=== PATIENT | male | born 1955 | race Hispanic/Latino ===

== ENCOUNTER 2019-07-26 11:04 | Observation (INO) | payer BC ==
[2019-07-26 12:07] LABS: BASOPHILS % (AUTO) 0.3 % (0.0-5.0); EOSINOPHILS % (AUTO) 0.7 % (0.0-8.0); HEMATOCRIT 43.1 % (42-54); LYMPHOCYTES % (AUTO) 22.9 % (21.0-51.0); MEAN CORPUSCULAR HEMOGLOBIN 25.8 pg (27.0-33.0); MEAN CORPUSCULAR HGB CONC 32.3 g/dL (32.0-36.0); MONOCYTES % (AUTO) 7.9 % (3.0-13.0); NEUTROPHILS % (AUTO) 67.9 % (40.0-77.0); PLATELET COUNT (AUTO) 212 K/uL (130-400); RED BLOOD CELL COUNT(AUTO) 5.39 MIL/uL (4.50-6.20); RED CELL DISTRIBUTION WIDTH 14.1 % (11.0-15.5); WHITE BLOOD COUNT (AUTO) 6.1 K/uL (4.8-10.8)
[2019-07-26 12:38] LABS: POTASSIUM 3.6 mmol/L (3.5-5.1)
[2019-07-26 12:41] LABS: INR 1.09 (0.85-1.15); PARTIAL THROMBOPLASTIN TIME 29.4 SEC (26.3-35.5); PROTHROMBIN TIME 11.7 SEC (9.6-11.6)
[2019-07-26 12:53] LABS: ALBUMIN 3.5 g/dL (3.5-5.0); BILIRUBIN,TOTAL 0.6 mg/dL (0.2-1.0); CREATININE 1.4 mg/dL (0.5-1.5)
[2019-07-26 12:59] LABS: B-TYPE NATRIURETIC PEPTIDE 51 pg/mL (0-100)
[2019-07-26] MEDS ORDERED: HYDRALAZINE HCL 20 MG/ML VIAL IV PRN (17:30)
[2019-07-26] MEDS ORDERED: ACETAMINOPHEN 325 MG TAB PO PRN ×2 (17:30)
[2019-07-26] MEDS ORDERED: MORPHINE SULFATE 2 MG/ML 1ML SYG IV PRN (17:30)
[2019-07-26] MEDS ORDERED: ONDANSETRON HCL 4 MG/2 ML VIAL IV PRN (17:30)
[2019-07-26] MEDS ORDERED: METOPROLOL TARTRATE 25 MG TAB ONE (18:15)
[2019-07-26 18:30] LABS: CHOLESTEROL 179 mg/dL (<200); HDL CHOLESTEROL 99 mg/dL (29-71); LDL DIRECT 109 mg/dL (0-99); TRIGLYCERIDES 115 mg/dL (30-200)
[2019-07-26 18:32] LABS: HEMOGLOBIN A1C 6.5 % (4.0-6.0)
[2019-07-26] MEDS ORDERED: AMIODARONE HCL 200 MG TABLET PO ONE (18:37)
[2019-07-26] MEDS: AMIODARONE HCL 200 MG TABLET PO SCH (19:16)
[2019-07-26] MEDS: METOPROLOL TARTRATE 25 MG TAB PO SCH (20:38)
[2019-07-26] MEDS: INSULIN R PO SS1/2 SQ SCH (21:00)
[2019-07-26] MEDS ORDERED: ATORVASTATIN CALCIUM 20 MG TABLET PO SCH (21:00)
[2019-07-26] MEDS: RIVAROXABAN 20 MG TABLET PO SCH (21:14)
[2019-07-26] MEDS: FAMOTIDINE/PF 20 MG/2 ML VIAL IV SCH (21:14)
[2019-07-26] MEDS ORDERED: LISI-617 PO (21:53)
[2019-07-26] MEDS ORDERED: AMIO200T5 PO (21:54)
[2019-07-26] MEDS ORDERED: ATOR40TA69 PO (21:54)
[2019-07-26] MEDS ORDERED: GLIP1TAB5 PO (21:54)
[2019-07-26] MEDS ORDERED: HYDR12.54 PO (21:54)
[2019-07-26] MEDS ORDERED: METO25TA6 PO (21:54)
[2019-07-26] MEDS ORDERED: NITR0.4T50 SL (21:54)
[2019-07-26] MEDS ORDERED: LOSA50TA64 PO (21:54)
[2019-07-26] MEDS ORDERED: RIVA20TA PO (21:54)
[2019-07-27] VITALS: BP 147/76
[2019-07-27] MEDS ORDERED: NITROGLYCERIN 0.4 MG SL TAB SL PRN (01:00)
[2019-07-27 04:00] VITALS: BP 156/75
[2019-07-27 04:56] LABS: BASOPHILS % (AUTO) 0.3 % (0.0-5.0); EOSINOPHILS % (AUTO) 2.4 % (0.0-8.0); HEMATOCRIT 41.7 % (42-54); LYMPHOCYTES % (AUTO) 30.3 % (21.0-51.0); MEAN CORPUSCULAR HEMOGLOBIN 26.4 pg (27.0-33.0); MEAN CORPUSCULAR HGB CONC 32.4 g/dL (32.0-36.0); MEAN CORPUSCULAR VOLUME 81.6 fL (79-99); MONOCYTES % (AUTO) 10.3 % (3.0-13.0); NEUTROPHILS % (AUTO) 56.4 % (40.0-77.0); PLATELET COUNT (AUTO) 218 K/uL (130-400); RED BLOOD CELL COUNT(AUTO) 5.11 MIL/uL (4.50-6.20); RED CELL DISTRIBUTION WIDTH 14.1 % (11.0-15.5)
[2019-07-27] MEDS: INSULIN R PO SS1/2 SQ SCH ×3 (05:18→16:07)
[2019-07-27 05:20] LABS: ALBUMIN 3.4 g/dL (3.5-5.0); BILIRUBIN,TOTAL 0.8 mg/dL (0.2-1.0); CREATININE 1.4 mg/dL (0.5-1.5); POTASSIUM 3.2 mmol/L (3.5-5.1); TOTAL PROTEIN, SERUM 6.8 g/dL (6.0-8.3)
[2019-07-27] MEDS ORDERED: POTASSIUM CHLORIDE 10% ELIXIR 20 MEQ/15 ML UDCUP PO PRN (05:30)
[2019-07-27] MEDS ORDERED: LIDOCAINE HCL-MPF 1% 2ML VIAL IV PRN (05:30)
[2019-07-27] MEDS ORDERED: POTASSIUM CHLORIDE 10MEQ/100ML 100 ML IV PRN (05:30)
[2019-07-27] MEDS: POTASSIUM CHLORIDE 20 MEQ ERTAB PO PRN ×3 (06:04→12:30)
[2019-07-27 08:17] VITALS: BP 150/77
--- NOTE | 2019-07-27 08:40 | NUR ---
dr gayle paged regarding consult. pending cb
[2019-07-27] MEDS: FAMOTIDINE/PF 20 MG/2 ML VIAL IV SCH (08:50)
[2019-07-27] MEDS: AMIODARONE HCL 200 MG TABLET PO SCH (08:50)
[2019-07-27] MEDS: METOPROLOL TARTRATE 25 MG TAB PO SCH (08:50)
[2019-07-27] MEDS: RIVAROXABAN 20 MG TABLET PO SCH (08:50)
[2019-07-27] MEDS ORDERED: ENOXAPARIN SODIUM 30 MG/0.3 ML SQ SCH (09:00)
[2019-07-27] MEDS ORDERED: ASPIRIN 325 MG TABLET PO SCH (09:00)
[2019-07-27 10:02] LABS: T4 (THYROXINE) 10.6 ug/dL (4.7-13.3); THYROID STIMULATING HORMONE 3.91 uIU/mL (0.36-3.74)
[2019-07-27 12:00] VITALS: BP 155/74
[2019-07-27] MEDS ORDERED: LOSARTAN 100 MG TABLET PO SCH ×2 (12:15→12:30)
[2019-07-27] MEDS ORDERED: AMIODARONE HCL 200 MG TABLET PO SCH ×3 (12:15→21:00)
[2019-07-27] MEDS ORDERED: LOSARTAN 100 MG TABLET ONE (12:21)
--- NOTE | 2019-07-27 12:33 | NUR ---
INITIAL SW spoke to patient. Patient states he lives with spouse. Emergency contact is daughter, Emelina Love, [phone]. No home services. DME: [facility], glucometer (no insulin). Patient is able to complete ADL's independently and drives. PCP is Dr. Jey Singh. Pharmacy is [facility] located in [place]. DCP is home. Addendum: 07/27/19 at 1235 by BRITTNEY GASCA SS Amended: Links added.
[2019-07-27] MEDS ORDERED: LOSA100T58 PO (12:56)
[2019-07-27 16:50] VITALS: BP 149/75
[2019-07-27] MEDS ORDERED: METOPROLOL TARTRATE 25 MG TAB PO SCH (21:00)
== END 2019-07-27 16:50 | disposition home or self-care (01) ==
LOC: EDH 11:04 → EDHIP 17:27 → 3CH 20:41
PROVIDERS: ADMIT Hospitalist; ATTEND Hospitalist
DX: I20.0 Unstable angina (principal); I48.92 Unspecified atrial flutter; E11.9 Type 2 diabetes mellitus without complications; E78.5 Hyperlipidemia, unspecified; I10 Essential (primary) hypertension; I48.0 Paroxysmal atrial fibrillation; Z79.01 Long term (current) use of anticoagulants; Z79.899 Other long term (current) drug therapy; Z86.73 Personal history of transient ischemic attack (TIA), and cerebral infarction without residual deficits; Z85.038 Personal history of other malignant neoplasm of large intestine
CPT/HCPCS: 36415 ×2; 71045; 80053 ×2; 80061; 82550; 82948 ×4; 83036; 83880; 84436; 84443; 84484 ×4; 85025 ×2; 85610; 85730; 93005 ×6; 96372; 96374; 96375 ×2; 96376; 99285; G0378 ×8; J1815; J2405; J3490 ×2

== ENCOUNTER → 2022-08-26 | Outpatient (CLI) | payer OTHER, MEDICARE ==
[~2022-08-26] MED LIST: AMIO200T68 PO; ATOR40TA69 PO; GLIP1TAB5 PO; HYDR12.54 PO; LOSA100T59 PO; METO25TA6 PO; NITR0.4T50 SL; RIVA20TA PO
[2022-08-26 16:36] LABS: MAGNESIUM 1.6 mg/dL (1.80-2.40); POTASSIUM 3.5 mmol/L (3.5-5.1)
[2022-08-26 17:00] LABS: ALBUMIN 2.4 g/dL (3.5-5.0)
[2022-08-26 17:21] LABS: CREATININE 1.4 mg/dL (0.5-1.5); DIGOXIN 0.87 ng/mL (0.50-2.00); TOTAL PROTEIN, SERUM 6.2 g/dL (6.0-8.3)
== END | disposition home or self-care (01) ==
LOC: LAB 14:35
PROVIDERS: ATTEND Internal Medicine Cardiovascular Disease
DX: I48.0 Paroxysmal atrial fibrillation (principal); Z79.01 Long term (current) use of anticoagulants
CPT/HCPCS: 36415; 80053; 80162; 83735

== ENCOUNTER → 2022-12-16 | Outpatient (CLI) | payer OTHER, MEDICARE ==
[2022-12-16 12:27] LABS: ALBUMIN 3.2 g/dL (3.5-5.0); BILIRUBIN,TOTAL 0.3 mg/dL (0.2-1.0); CREATININE 1.1 mg/dL (0.5-1.5); DIGOXIN 0.6 ng/mL (0.50-2.00); MAGNESIUM 1.5 mg/dL (1.80-2.40); POTASSIUM 3.8 mmol/L (3.5-5.1); TOTAL PROTEIN, SERUM 5.8 g/dL (6.0-8.3)
== END | disposition home or self-care (01) ==
LOC: LAB 10:53
PROVIDERS: ATTEND Internal Medicine Cardiovascular Disease
DX: I48.0 Paroxysmal atrial fibrillation (principal); I50.42 Chronic combined systolic (congestive) and diastolic (congestive) heart failure
CPT/HCPCS: 36415; 80053; 80162; 83735; 83880

== ENCOUNTER → 2023-06-02 | Outpatient (CLI) | payer OTHER, MEDICARE ==
[2023-06-02 16:38] LABS: ALBUMIN 3.5 g/dL (3.5-5.0); BILIRUBIN,TOTAL 1.4 mg/dL (0.2-1.0); CREATININE 1.6 mg/dL (0.5-1.5); MAGNESIUM 1.4 mg/dL (1.80-2.40); POTASSIUM 4.1 mmol/L (3.5-5.1); TOTAL PROTEIN, SERUM 6.2 g/dL (6.0-8.3)
== END | disposition home or self-care (01) ==
LOC: LAB 06-02 14:20
PROVIDERS: ATTEND Internal Medicine Cardiovascular Disease
DX: I50.42 Chronic combined systolic (congestive) and diastolic (congestive) heart failure (principal); I48.0 Paroxysmal atrial fibrillation
CPT/HCPCS: 36415; 80053; 83735

== ENCOUNTER → 2023-06-09 | Outpatient (CLI) | payer OTHER, MEDICARE ==
[2023-06-09 12:30] LABS: CARBON DIOXIDE 30 mmol/L (21-32); CHLORIDE 101 mmol/L (101-111); GLOMERULAR FILTR. RATE CALC 36 mL/min (>90); GLUCOSE,RANDOM 152 mg/dL (70-105); POTASSIUM 3.6 mmol/L (3.5-5.1); SODIUM SERUM 143 mmol/L (136-145); UREA NITROGEN, BLOOD 53 mg/dL (7-18)
[2023-06-09 12:50] LABS: DIGOXIN < 0.20 ng/mL (0.50-2.00)
== END | disposition home or self-care (01) ==
LOC: LAB 10:37
PROVIDERS: ATTEND Internal Medicine Cardiovascular Disease
DX: I50.42 Chronic combined systolic (congestive) and diastolic (congestive) heart failure (principal); I48.0 Paroxysmal atrial fibrillation
CPT/HCPCS: 36415; 80048; 80162; 83735

== ENCOUNTER → 2024-03-28 | Outpatient (CLI) | payer OTHER, MEDICARE ==
[~2024-03-28] MED LIST changes: +ALLO300T2 PO; -AMIO200T68 PO; -ATOR40TA69 PO; +FURO40TA5 PO; -GLIP1TAB5 PO; -HYDR12.54 PO; -LOSA100T59 PO; +METF-446 PO; +METO-391 PO; +METO-408 PO; -METO25TA6 PO; -NITR0.4T50 SL; +PANT40TA54 PO; +POTA-364 PO; -RIVA20TA PO; +SERT-438 PO
[2024-03-28 16:19] LABS: BASOPHILS # (AUTO) 0.02 K/uL (0.00-0.20); BASOPHILS % (AUTO) 0.4 % (0.0-5.0); EOSINOPHILS % (AUTO) 2.2 % (0.0-8.0); IMMATURE GRANULOCYTE ABSOLUTE 0.07 K/uL (0-1); LYMPHOCYTES # (AUTO) 1.2 K/uL (1.0-4.8); LYMPHOCYTES % (AUTO) 25.9 % (21.0-51.0); MEAN CORPUSCULAR HEMOGLOBIN 29.4 pg (27.0-33.0); MEAN CORPUSCULAR HGB CONC 31.4 g/dL (32.0-36.0); MEAN CORPUSCULAR VOLUME 93.6 fL (79-99); MONOCYTES # (AUTO) 0.7 K/uL (0.1-1.0); NEUTROPHILS # (AUTO) 2.5 K/uL (1.8-7.7); NEUTROPHILS % (AUTO) 54.9 % (40.0-77.0); PLATELET COUNT (AUTO) 115 K/uL (130-400); RED BLOOD CELL COUNT(AUTO) 3.74 MIL/uL (4.50-6.20); RED CELL DISTRIBUTION WIDTH 15.5 % (11.0-15.5); WHITE BLOOD COUNT (AUTO) 4.5 K/uL (4.8-10.8)
[2024-03-28 16:44] LABS: ALBUMIN 3.4 g/dL (3.5-5.0); BILIRUBIN,TOTAL 0.8 mg/dL (0.2-1.0); CREATININE 1.2 mg/dL (0.5-1.3); POTASSIUM 3.3 mmol/L (3.5-5.1); TOTAL PROTEIN, SERUM 5.8 g/dL (6.0-8.3)
== END | disposition home or self-care (01) ==
LOC: LAB 11:33
PROVIDERS: ATTEND Internal Medicine Cardiovascular Disease
DX: I11.0 Hypertensive heart disease with heart failure (principal); I50.42 Chronic combined systolic (congestive) and diastolic (congestive) heart failure
CPT/HCPCS: 36415; 80053; 83880; 85025

== ENCOUNTER → 2024-04-13 | Outpatient (CLI) | payer OTHER, MEDICARE ==
[2024-04-13] MEDS: REGADENOSON 0.4 MG/5 ML PF SYG IVP ONE (15:10)
--- NOTE | 2024-04-14 12:05 | HMCSR ---
APPROVED REPORT Height: 5 ft 8in Weight: 211 lbs TEST INDICATIONS ANGINA PECTORIS UNSPECIFIED The imaging protocol used to acquire images was Rest Tc-99m/stress Tc-99m 1 day Consent: The procedure was explained and understood by the patient. Informerd consent was witnessed Geneiss Restrepo RN First, low dose rest was performed then high dose stress. RESTING DATA: The resting ekg shows: NSR A sensing V pacing Rest SPECT myocardial perfusion imaging was performed in supine position 72 minutes following the int ravenous injection of 11.7 mCi of Tc-99 Sestamibi. Time of rest injection: 08:40: Date: 04/13/2024 Time of rest imagin:52: Date: 04/13/2024 PHARMACOLOGIC STRESS: Pharmacologic stress test was performed by injecting regadenoson 0.4 mg IV push followed by the intra venous injection of 32 mCi of Tc-99 Sestamibi. Time of stress injection: 10:20: Date: 04/13/2024 Time of stress imagin:02: Date: 04/13/2024 Heart Rate at time of stress injection: 87 bpm. Gated Stress SPECT was performed 102 minutes after stress injection. The images were gated to evaluate regional wall motion and calculate left ventricular ejection fracti on. STRESS DETAILS Reason for Termination: Infusion complete Stress Symptoms: No chest pain or symptoms Max HR Achieved: 90 bpm % of APMHR Achieved: 60 Max Blood Pressure: 139/79 mmHg Stress ECG: NSR Conclusion Distal anterior ischemia Inferior infarct LV ejection fraction 44% Inferior hypokinesis No increased lung uptake Normal LV size at rest and stress
== END | disposition home or self-care (01) ==
LOC: SHCH 08:22
PROVIDERS: ATTEND Internal Medicine Cardiovascular Disease
DX: I25.9 Chronic ischemic heart disease, unspecified (principal); I21.9 Acute myocardial infarction, unspecified
CPT/HCPCS: 78452; 93017; J2785; A9500 ×2

== ENCOUNTER 2024-05-24 07:31 | Day surgery (SDC) | payer OTHER, MEDICARE ==
[2024-05-22 09:21] LABS: BASOPHILS # (AUTO) 0.02 K/uL (0.00-0.20); BASOPHILS % (AUTO) 0.5 % (0.0-5.0); EOSINOPHILS # (AUTO) 0.11 K/uL (0.00-0.70); EOSINOPHILS % (AUTO) 2.8 % (0.0-8.0); HEMATOCRIT 40.8 % (42-54); IMMATURE GRANULOCYTE ABSOLUTE 0.02 K/uL (0-1); LYMPHOCYTES # (AUTO) 1.4 K/uL (1.0-4.8); LYMPHOCYTES % (AUTO) 33.8 % (21.0-51.0); MEAN CORPUSCULAR HGB CONC 32.1 g/dL (32.0-36.0); MEAN CORPUSCULAR VOLUME 90.5 fL (79-99); MONOCYTES # (AUTO) 0.5 K/uL (0.1-1.0); MONOCYTES % (AUTO) 12.8 % (3.0-13.0); NEUTROPHILS % (AUTO) 49.6 % (40.0-77.0); PLATELET COUNT (AUTO) 133 K/uL (130-400); RED BLOOD CELL COUNT(AUTO) 4.51 MIL/uL (4.50-6.20); RED CELL DISTRIBUTION WIDTH 14.7 % (11.0-15.5)
[2024-05-22 09:30] LABS: CREATININE 1.2 mg/dL (0.5-1.3); POTASSIUM 4.5 mmol/L (3.5-5.1)
[2024-05-22 09:32] LABS: INR 1.02 (0.85-1.15); PROTHROMBIN TIME 11.4 SEC (9.6-11.6)
[2024-05-22 09:33] LABS: PARTIAL THROMBOPLASTIN TIME 29.1 SEC (26.3-35.5)
--- NOTE | 2024-05-22 09:38 | EKG ---
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
[2024-05-22 09:45] LABS: APPEARANCE,URINE CLEAR (CLEAR); BILIRUBIN,URINE NEGATIVE (NEGATIVE); COLOR,URINE LIGHT-YELLOW (YELLOW); GLUCOSE, URINE (UA) NEGATIVE (NEGATIVE); KETONES,URINE NEGATIVE (NEGATIVE); LEUKOCYTE ESTERASE ,URINE NEGATIVE Leu/uL (NEGATIVE); NITRATE,URINE NEGATIVE (NEGATIVE); OCCULT BLOOD,URINE NEGATIVE (NEGATIVE); PROTEIN,URINE 10 mg/dL (NEGATIVE); UROBILINOGEN,URINE 0.2 mg/dL (0.2-1.0)
[2024-05-22 09:47] LABS: ADD UA MICROSCOPIC YES
[2024-05-22 09:48] VITALS: BP 131/74; PULSE 86; RESP 13; TEMP 98.3
[2024-05-22 09:51] LABS: B-TYPE NATRIURETIC PEPTIDE 185 pg/mL (0-100)
--- NOTE | 2024-05-22 10:11 | HMCIMG ---
CHEST 1VW HISTORY: Preop COMPARISON: 07/06/2023 FINDINGS: A frontal projection of the chest was obtained. No acute pulmonary infiltrates is seen. The heart is borderline enlarged. Pacemaker is seen entering from the right. Degenerative changes are seen. Aortic calcifications are seen. IMPRESSION: 1. No acute pulmonary infiltrate is seen.
[2024-05-22 10:13] LABS: MUCUS,URINE RARE LPF (None Seen); WBC,URINE 0-1 /HPF (0-1)
[~2024-05-24] VITALS: Ht 175.3 cm; Wt 93.0 kg
[2024-05-24] VITALS (10 sets, daily range): BP systolic 135–174; BP diastolic 82–98; PULSE 82–88; RESP 13–18; TEMP 97.2–97.9
[~2024-05-24 07:31] MED LIST changes: +ASPI-1443 PO; +CLOP75TA32 PO; +ISOS60TA77 PO; -METF-446 PO; -METO-391 PO; +NITR0.4T50 SL; +ROSU10TA72 PO; +SACU1TAB PO
[2024-05-24] MEDS: 0.9%NACL 1000ML 1,000 ML IV SCH (08:07)
[2024-05-24] MEDS ORDERED: IOHEXOL-350 75 ML VIAL IV ONE ×2 (10:01→11:32)
[2024-05-24] MEDS ORDERED: HEParin 10,000 UNIT/10ML (1,000 UNIT/ML) VIAL ONE (10:01)
[2024-05-24] MEDS ORDERED: HEParin-NS 1,000 UNIT/500 ML 1,000 ML IV ONE (10:01)
[2024-05-24] MEDS ORDERED: IOHEXOL-350 50ML VIAL IV ONE (10:01)
[2024-05-24] MEDS ORDERED: LIDOCAINE HCL 400MG/20ML VIAL ONE (10:01)
[2024-05-24] MEDS ORDERED: NITROGLYCERIN 50MG VIAL ONE ×2 (10:02→10:12)
[2024-05-24] MEDS ORDERED: IOHEXOL 350 MG/ML 100ML INFUS..BTL IV ONE (10:26)
[2024-05-24] MEDS ORDERED: FENTanyl CITRate PF 50 MCG/1 ML 2ML VIAL ONE (10:29)
[2024-05-24] MEDS ORDERED: BIVALIRUDIN 250 MG/VIAL IV ONE ×2 (10:29→12:19)
[2024-05-24] MEDS ORDERED: MIDAZOLAM HCL 1 MG/ML 2ML VIAL ONE (10:29)
[2024-05-24] MEDS ORDERED: HEParin-NS 1,000 UNIT/500 ML 500 ML IV ONE (11:31)
[2024-05-24] MEDS ORDERED: ASPIRIN 325MG EC TAB PO ONE (11:37)
[2024-05-24] MEDS ORDERED: cloPIDOgrel 300MG TAB ONE (11:37)
--- NOTE | 2024-05-24 14:29 | PRN ---
DATE OF PROCEDURE: 05/24/2024 PROCEDURE PERFORMED: LEFT HEART CATHETERIZATION, LEFT VENTRICULOGRAM, LEFT AND RIGHT SELECTIVE CORONARY ANGIOGRAM, INJECTION OF LEFT INTERNAL MAMMARY TO ASSESS SUITABILITY FOR USE A POSSIBLE BYPASS CONDUIT (PATIENT CONSIDERED FOR BYPASS), PTCA AND STENTING OF THE DIAGONAL ONE WITH A 2.5 X 26 MM WENDY FRONTIER DRUG-ELUTING STENT, PTCA ALONE TO THE OM1 WITH A 2.0 X 11 MM NC STORMER BALLOON TO 18 ATMOSPHERES. GEOSPATIAL INFORMATION TECHNOLOGIST: Ryland Ball MD, [facility] INDICATION: Medically refractory angina, abnormal Lexiscan Cardiolite stress test with distal anterior ischemia, prior inferior infarct, and LVEF of 44%. PROCEDURE NOTE: After informed consent was obtained the patient was prepped and draped in the usual sterile fashion. A 6 [place] arterial sheath was inserted in the right femoral artery micropuncture technique with ultrasound guidance with a front wall, first pass puncture. This was performed after fluoroscopic identification of bony landmarks to facilitate a more accurate puncture of the right common femoral artery. The arterial sheath was aspirated and flushed. A 6 [place] pigtail catheter was then advanced over a J-tipped guidewire to the ascending aorta and was prolapsed into the left ventricle. The catheter was aspirated and flushed and pressure measurements were obtained. A left ventriculogram was then performed in a 30 VALLEJO projection. A pullback procedure was then performed, and this catheter was removed over a J-tipped guidewire. A 6F JL-4 was then advanced to the ascending aorta over a J-tipped guidewire, was aspirated and flushed, and was used for selective left coronary angiograms in multiple obliquities. A JR-4 was advanced in a similar fashion to the ascending aorta over a J-tipped guidewire and was used for selective right coronary angiograms in multiple obliquities with findings as outlined below. PERCUTANEOUS CORONARY INTERVENTION: A six [place] JL4 guiding catheter was used for the intervention and provided suboptimal support requiring insertion of a six [place] GuideLiner. This facilitated preparation of the diagonal one with a 2.5 x 20 NC Euphora balloon followed by stenting with a 2.5 x 26 mm Medtronic WENDY FRONTIER drug-eluting stent. Final results were excellent with a 0% residual. A ollie wire was required to access a 98% OM1 ostial stenosis with a 1.5 x 15 mm Sprinter OTW balloon, and a GuideLiner had difficulty advancing into the proximal circumflex. Subsequently a 2.0 x 11 mm NC Stormer balloon was deployed to 18 atmospheres for prolonged inflations of 2 minutes leading to a 50% ostial residual with mild capping dissection. A right common femoral angiogram was performed to assess suitability for Perclose suture closure and the Perclose device was deployed in standard fashion. Perclose suture closure was successful without bleeding or hematoma. The patient tolerated the procedure well and was returned to the holding area in stable condition. FINDINGS: LEFT HEART HEMODYNAMICS: LVEDP prior to LV-gram was 8 mm of mercury and 12 mm of mercury after LV-gram. There was no aortic valve gradient on pullback LEFT VENTRICULOGRAM: A left ventriculogram in a 30 degree VALLEJO projection demonstrated moderate anter oapical apical and inferoapical hypokinesis with an LVEF estimated at 45%. There was 1+ mitral regurgitation only. CORONARY ANGIOGRAM: LEFT MAIN: The left main had a 30% ostial stenosis without dampening or ventricularization of the pressure waveform. LEFT ANTERIOR DESCENDING: The LAD had a long chronic total occlusion after the 1st diagonal. The distal LAD filled via [id number]-[id number]-gzoi collaterals and appeared to reveal a small mid and distal LAD and diagonal two branch, but these were clearly under filled and are likely larger. The 1st diagonal had a diffuse proximal 90% stenosis in a large diagonal one. LEFT CIRCUMFLEX: The left circumflex had a 50% stenosis after the bifurcation of a small to moderate OM1. The OM1 had a 98% ostial stenosis. The circumflex terminated in the AV groove after an OM2 with a 30% stenosis supplying the posterolateral area. RAMUS INTERMEDIATE BRANCH: There was no ramus intermediate branch. RIGHT CORONARY ARTERY: The RCA had a 30% proximal stenosis and a 50% mid stenosis. The posterolateral segment between the PDA and the posterolateral branch had a 60% stenosis with a small aneurysm. The PDA had a 40% ostial stenosis in the posterolateral branch was normal. IMPRESSION: Severe three-vessel coronary artery disease: Long chronic total occlusion in the mid LAD with the distal LAD filling by [id number] collaterals. 90% large diagonal one stenosis. 50% mid left circumflex stenosis. 98% ostial OM1 stenosis which is a small vessel measuring approximately 2 mm. 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 Mild ischemic cardiomyopathy with anterior, anteroapical, and inferoapical mode rate hypokinesis and LVEF estimate of 45%. Mild mitral regurgitation. No aortic valve stenosis. RECOMMENDATION: Successful PTCA and stenting of the diagonal one with a 2.5 x 26 mm Medtronic Wendy Lares Successful balloon angioplasty alone to the OM1 reducing a 98% stenosis to a 50% stenosis with short capping dissection (likely to heal), with suboptimal acute angulation of the OM1 which would lead to plaque shift into the ongoing larger circumflex with any attempt at stenting. Continued medical management. Dual antiplatelet therapy for one year. COMPLICATIONS OF PROCEDURE: None, the patient tolerated the procedure well and returned to his room in stable condition. HEMOSTASIS: Perclose suture closure was successful without bleeding or hematoma. ESTIMATED BLOOD LOSS: Less than 10 mL. CONTRAST TOTAL: 300 mL. RYLAND BALL MD May 24, 2024 14:29
[2024-05-24] MEDS ORDERED: DEXTROSE 50%-WATER 50 ML DISP.SYRIN IV PRN (14:30)
[2024-05-24] MEDS ORDERED: 0.9%NACL 1000ML 1,000 ML IV SCH (14:30)
[2024-05-24] MEDS ORDERED: INSULIN humuLIN R 100 UNIT/ML 3ML SQ SCH (16:30)
== END 2024-05-24 19:10 | disposition home or self-care (01) ==
LOC: DAH 07:31
PROVIDERS: ATTEND Internal Medicine Cardiovascular Disease
DX: R94.39 Abnormal result of other cardiovascular function study (principal); I25.112 Atherosclerotic heart disease of native coronary artery with refractory angina pectoris; I25.82 Chronic total occlusion of coronary artery; I25.5 Ischemic cardiomyopathy; I11.0 Hypertensive heart disease with heart failure; I50.42 Chronic combined systolic (congestive) and diastolic (congestive) heart failure; R93.1 Abnormal findings on diagnostic imaging of heart and coronary circulation; I34.0 Nonrheumatic mitral (valve) insufficiency; E78.5 Hyperlipidemia, unspecified; Z98.0 Intestinal bypass and anastomosis status; Z90.49 Acquired absence of other specified parts of digestive tract; Z86.73 Personal history of transient ischemic attack (TIA), and cerebral infarction without residual deficits; Z85.038 Personal history of other malignant neoplasm of large intestine; Z95.810 Presence of automatic (implantable) cardiac defibrillator; Z79.84 Long term (current) use of oral hypoglycemic drugs; Z79.899 Other long term (current) drug therapy
CPT/HCPCS: 80048; 83880; 85025; 85610; 85730; 81001; 36415; 71045; 93005; 93458; 92920; 82948 ×2; Q9965; A4223 ×3; C1887 ×3; C1894 ×2; C1769 ×3; C1725 ×3; C1874; C1760; J3010; J3490 ×3; J7030; J2250; J1644 ×2; J0583 ×2; Q9967 ×3; A4215; A4222; A4221; A4663; A4216; A4606; C9600; 99156; 99157